=== PATIENT | male | born 1965 | race Two or more races ===

== ENCOUNTER 2021-05-17 17:44 | Emergency (ER) | payer SELFPAY ==
[~2021-05-17] VITALS: Ht 172.7 cm; Wt 84.3 kg
[2021-05-17 18:00] VITALS: BP 155/83
--- NOTE | 2021-05-17 19:31 | RAD ---
XR KNEE 4 VIEWS WITH PATELLA_RT History: Reason: right knee pain for 10 days, twisted the right knee / Spl. Instructions: / History: Technique: 4 views right knee Comparison: None. Findings: No dislocation. No acute fracture. Mild right knee degenerative changes most prominent within the med ial and patellofemoral compartments. Minimal knee joint effusion. Impression: 1. No acute osseous abnormalities. 2. Mild right knee DJD. Electronically signed by: Francisco Osman DO (05/17/2021 7:28 PM) [facility]
--- NOTE | 2021-05-17 19:37 | PHYS DOC ---
Past History Past Surgical History: No Surgical History Alcohol Use: Occasionally General Adult EDM: Chief Complaint: KNEE INJURY HPI: HPI: Patient is a 55-year-old male that presents today with right knee pain. Patient is Filipino-speaking only and does have a son at the bedside that has agreed to interpret for us. Patient states that about 10 days ago he was walking and walked onto a rock and twisted his right knee and since that time he has had increased pain in that knee mostly on the inner aspect of the knee. Patient has not taken anything for pain and has not done any treatments or sought out any evaluation for this knee pain. Patient is able to ambulate he just has pain with ambulation. Review of Systems: Review of Systems: Constitutional: Denies fever or chills Eyes: Denies change in visual acuity HENT: Denies nasal congestion or sore throat Respiratory: Denies cough or shortness of breath Cardiovascular: Denies chest pain or edema GI: Denies abdominal pain, nausea, vomiting, bloody stools or diarrhea : Denies dysuria Musculoskeletal: Right knee pain Integument: Denies rash Neurologic: Denies headache, focal weakness or sensory changes Endocrine: Denies polyuria or polydipsia Lymphatic: Denies swollen glands Psychiatric: Denies depression or anxiety Allergies: Allergies: Allergies Coded Allergies Type Severity Reaction Last Updated Verified No Known Drug Allergies 05/17/21 No Physical Exam: PE: Constitutional: Well developed, well nourished, no acute distress, non-toxic appearance. [] HENT: Normocephalic, atraumatic, bilateral external ears normal, oropharynx moist, no oral exudates, nose normal. [] Eyes: PERRLA, EOMI, conjunctiva normal, no discharge. [] Neck: Normal range of motion, no tenderness, supple, no stridor. [] Cardiovascular:Heart rate regular rhythm, no murmur [] Lungs & Thorax: Bilateral breath sounds clear to auscultation [] Abdomen: Bowel sounds normal, soft, no tenderness, no masses, no pulsatile masses. [] Skin: Warm, dry, no erythema, no rash. [] Back: No tenderness, no CVA tenderness. [] Extremities: Right knee swollen, tenderness noted on the medial aspect of the knee no pain with movement of the kneecap, patient is able to extend and flex the knee with pain, pedal pulse is 2+ sensory is intact distal to the injury, patient's gait is steady Neurologic: Alert and oriented X 3, normal motor function, normal sensory function, no focal deficits noted. [] Psychologic: Affect normal, judgement normal, mood normal. [] Current Patient Data: Vital Signs: Vital Signs Date Time Temp Pulse Resp B/P (MAP) Pulse Ox O2 Delivery O2 Flow Rate FiO2 05/17/21 18:00 98.8 83 18 155/83 (107) 98 Room Air EKG: EKG: [] Radiology/Procedures: Radiology/Procedures: [REASON: right knee pain for 10 days, twisted the right knee PROCEDURE: KNEE RIGHT 4V XR KNEE 4 VIEWS WITH PATELLA_RT History: Reason: right knee pain for 10 days, twisted the right knee / Spl. Instructions: / History: Technique: 4 views right knee Comparison: None. Findings: No dislocation. No acute fracture. Mild right knee degenerative changes most prominent within the medial and patellofemoral compartments. Minimal knee joint effusion. Impression: 1. No acute osseous abnormalities. 2. Mild right knee DJD. Electronically signed by: Francisco Osman DO (05/17/2021 7:28 PM) [facility] ] Heart Score: C/O Chest Pain: No Risk Factors: Risk Factors: DM, Current or recent (<one month) smoker, HTN, HLP, family history of CAD, obesity. Risk Scores: Score 0 - 3: 2.5% MACE over next 6 weeks - Discharge Home Score 4 - 6: 20.3% MACE over next 6 weeks - Admit for Clinical Observation Score 7 - 10: 72.7% MACE over next 6 weeks - Early Invasive Strategies Course & Med Decision Making: Course & Med Decision Making Pertinent Labs and Imaging studies reviewed. (See chart for details) 1934 reviewed radiological results with patient and son, did inform him that no acute findings were seen, patient does have some mild arthritic changes, patient is to continue his activity as tolerated, [id number] Tylenol and ibuprofen as needed for pain if patient continues to have pain to follow-up with his primary care physician for further evaluation of this. Patient and son are agreeable with the plan of care. Patient states he does not have a primary care physician and was given a copy of the community [employer] brochure for him to establish primary care. Tl Disclaimer: Tl Disclaimer: This electronic medical record was generated, in whole or in part, using a voice recognition dictation system. Departure Departure: Impression: Primary Impression: Right medial knee pain Disposition: HOME / SELF CARE / HOMELESS Condition: STABLE Referrals: PCP,NO (PCP) Patient Instructions: Knee Pain Additional Instructions: Ice 20 minutes on 3-4 times daily Tylenol and/or ibuprofen as labeled directed for pain Follow-up with your primary care physician in 5 to 10 days if your pain is not improving. Wear knee brace or Boy wrap as needed for comfort. JESS [employer] May 17, 2021 19:37
== END 2021-05-17 19:45 | disposition home or self-care (01) ==
LOC: ER 17:44
DX: M25.561 Pain in right knee (principal); R22.41 Localized swelling, mass and lump, right lower limb
CPT/HCPCS: 73564; 99283